=== PATIENT | male | born 1970 | race Caucasian/White ===

== ENCOUNTER 2018-05-05 07:39 | Emergency (ER) | payer MEDICAID ==
[2018-05-05 08:00] VITALS: BP 138/84
--- NOTE | 2018-05-05 10:28 | Emergency Department Report ---
ED Recheck HPI - General Chief Complaint: Medical Clearance Stated Complaint: REFILL MEDICATION Source: patient Mode of arrival: Ambulatory Limitations: Other - History of Present Illness Initial Comments: 48-year-old male presents to ED with request for medication refill. Patient has a history of bipolar and schizoaffective disorder. Patient requesting refill on Seroquel and Ritalin. Patient does not know the doses. Patient asking for something to eat. Denies SI, HI, or hallucinations. Complaint: medication refill request -: unknown Returns Today for: request for prescription (seroquel and ritalin) Associated Symptoms: none - Related Data Previous Rx's Medication Instructions Recorded Last Taken Type Benztropine [Cogentin] 0.5 mg PO BID #30 tablet 12/10/15 Unknown Rx [place] Carbonate [Eskalith] 300 mg PO BID capsule 12/10/15 Unknown Rx OLANzapine ZYDIS [ZyPREXA Zydis] 5 mg PO Q5H PRN #10 tab.rapdis 12/10/15 Unknown Rx OLANzapine [ZyPREXA] 10 mg PO BID #30 tablet 12/10/15 Unknown Rx clonazePAM [KlonoPIN] 0.5 mg PO BID #30 tablet 12/10/15 Unknown Rx levETIRAcetam [Keppra TAB] 500 mg PO BID tablet 12/10/15 Unknown Rx oxyCODONE /ACETAMINOPHEN [Percocet 1 tab PO Q6H PRN #10 tablet 12/10/15 Unknown Rx 5/325 mg] Allergies Allergy/AdvReac Type Severity Reaction Status Date / Time haloperidol [From Haldol] Allergy Unknown Verified 02/23/16 10:20 haloperidol lactate Allergy Unknown Verified 02/23/16 10:20 [From Haldol] ED Review of Systems ROS: Stated complaint: REFILL MEDICATION Other details as noted in HPI Comment: All other systems reviewed and negative Psychiatric: denies: auditory hallucinations, visual hallucinations, homicidal thoughts, suicidal thoughts ED Past Medical Hx - Past Medical History Previous Medical History?: Yes Hx Congestive Heart Failure: (unknown) Hx Diabetes: (unknown) Hx Seizures: Yes (new onset) Hx Psychiatric Treatment: Yes (SHIZOPHRENIC) Hx Asthma: (unknown) Hx COPD: (Unknown) - Surgical History Past Surgical History?: No - Social History Smoking Status: Never Smoker Substance Use Type: Prescribed - Medications Home Medications: Home Medications Medication Instructions Recorded Confirmed Last Taken Type Benztropine [Cogentin] 0.5 mg PO BID #30 tablet 12/10/15 Unknown Rx [place] Carbonate [Eskalith] 300 mg PO BID capsule 12/10/15 Unknown Rx OLANzapine ZYDIS [ZyPREXA Zydis] 5 mg PO Q5H PRN #10 tab.rapdis 12/10/15 Unknown Rx OLANzapine [ZyPREXA] 10 mg PO BID #30 tablet 12/10/15 Unknown Rx clonazePAM [KlonoPIN] 0.5 mg PO BID #30 tablet 12/10/15 Unknown Rx levETIRAcetam [Keppra TAB] 500 mg PO BID tablet 12/10/15 Unknown Rx oxyCODONE /ACETAMINOPHEN [Percocet 1 tab PO Q6H PRN #10 tablet 12/10/15 Unknown Rx 5/325 mg] ED Physical Exam - General Limitations: Other General appearance: alert, in no apparent distress - Head Head exam: Present: atraumatic, normocephalic - Eye Eye exam: Present: normal appearance - ENT ENT exam: Present: mucous membranes moist - Neck Neck exam: Present: normal inspection - Respiratory Respiratory exam: Present: normal lung sounds bilaterally. Absent: respiratory distress - Cardiovascular Cardiovascular Exam: Present: regular rate, normal rhythm - GI/Abdominal GI/Abdominal exam: Present: soft. Absent: distended - Extremities Exam Extremities exam: Present: normal inspection - Neurological Exam Neurological exam: Present: alert, oriented X3 - Psychiatric Psychiatric exam: Present: normal affect, normal mood, anxious ED Course Vital Signs 05/05/18 07:56 Temperature 97.6 F Pulse Rate 96 H Respiratory 18 Rate Blood Pressure 138/84 O2 Sat by Pulse 94 Oximetry ED Recheck MDM - Medical Decision Making Patient with history of bipolar and schizoaffective disorder presents to the ED requesting a refill on Seroquel and Ritalin. Patient does not know the dosage of these medications. The medications are not present on the chart, so unable to find if he is truly taking these medications and what dose. Informed patient that I am unable to refill these medications at this time. Patient referred to [facility] department. Critical care attestation.: If time is entered above; I have spent that time in minutes in the direct care of this critically ill patient, excluding procedure time. ED Disposition Clinical Impression: Encounter for medication refill Disposition: DC-01 TO HOME OR SELFCARE Is pt being admited?: No Condition: Stable Referrals: [facility] [Outside] - 3-5 Days Time of Disposition: 10:26
== END 2018-05-05 10:30 | disposition home or self-care (01) ==
LOC: ED 07:39
DX: Z76.0 Encounter for issue of repeat prescription (principal); F31.9 Bipolar disorder, unspecified; F25.9 Schizoaffective disorder, unspecified
CPT/HCPCS: 99281

== ENCOUNTER 2018-05-17 08:58 | Emergency (ER) | payer MEDICAID ==
[2018-05-17 09:15] VITALS: BP 119/73
[2018-05-17] MEDS ORDERED: IBUPROFEN PO ONE (09:34)
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
== END 2018-05-17 09:44 | disposition home or self-care (01) ==
LOC: ED 08:58 → MERGE 08:58 → ED 09:44
DX: S20.219A Contusion of unspecified front wall of thorax, initial encounter (principal); Y08.89XA Assault by other specified means, initial encounter; Y93.89 Activity, other specified; Y92.89 Other specified places as the place of occurrence of the external cause; Y99.8 Other external cause status
CPT/HCPCS: 99282

== ENCOUNTER 2018-05-28 16:07 | Emergency (ER) | payer MEDICAID ==
[2018-05-28 16:21] VITALS: BP 127/83
--- NOTE | 2018-05-28 18:21 | Emergency Department Report ---
ED Recheck HPI - General Chief Complaint: Medical Clearance Stated Complaint: MH EVAL Time Seen by Provider: 05/28/18 17:50 Source: patient Mode of arrival: Ambulatory Limitations: No Limitations - History of Present Illness Initial Comments: This is a 48-year-old male nontoxic, well nourished in appearance, no acute signs of distress presents to the ED for "sleep medication". Patient stated he wants medication to sleep well at nights. Patient denies any SI/HI. Patient stated he is compliant with medications. Patient denies any chest pain, short ness of breathe, fever, chills, headache, nausea vomiting chest pain or shortness of breathe. MD Complaint: other (sleep medication) Symptoms Since Prior Visit: no new symptoms Associated Symptoms: none. denies: fever, chills, chest pain, shortness of breath, rash, malaise, [place], abdominal pain - Related Data Previous Rx's Medication Instructions Recorded Last Taken Type Benztropine [Cogentin] 0.5 mg PO BID #30 tablet 12/10/15 Unknown Rx [place] Carbonate [Eskalith] 300 mg PO BID capsule 12/10/15 Unknown Rx OLANzapine ZYDIS [ZyPREXA Zydis] 5 mg PO Q5H PRN #10 tab.rapdis 12/10/15 Unknown Rx OLANzapine [ZyPREXA] 10 mg PO BID #30 tablet 12/10/15 Unknown Rx clonazePAM [KlonoPIN] 0.5 mg PO BID #30 tablet 12/10/15 Unknown Rx levETIRAcetam [Keppra TAB] 500 mg PO BID tablet 12/10/15 Unknown Rx oxyCODONE /ACETAMINOPHEN [Percocet 1 tab PO Q6H PRN #10 tablet 12/10/15 Unknown Rx 5/325 mg] Diphenhydramine HCl [Nighttime 25 mg PO QHS PRN #10 tablet 05/28/18 Unknown Rx Sleep Aid] Allergies Allergy/AdvReac Type Severity Reaction Status Date / Time haloperidol [From Haldol] Allergy Unknown Verified 02/23/16 10:20 haloperidol lactate Allergy Unknown Verified 02/23/16 10:20 [From Haldol] ED Review of Systems ROS: Stated complaint: MH EVAL Other details as noted in HPI Constitutional: denies: chills, fever Eyes: denies: eye pain, eye discharge, vision change ENT: denies: ear pain, throat pain Respiratory: denies: cough, shortness of breath, wheezing Cardiovascular: denies: chest pain, palpitations Endocrine: no symptoms reported Gastrointestinal: denies: abdominal pain, nausea, diarrhea Genitourinary: denies: urgency, dysuria Musculoskeletal: denies: back pain, joint swelling, arthralgia Skin: denies: rash, lesions Neurological: denies: headache, weakness, paresthesias Psychiatric: denies: anxiety, depression, homicidal thoughts, suicidal thoughts Hematological/Lymphatic: denies: easy bleeding, easy bruising ED Past Medical Hx - Past Medical History Hx Congestive Heart Failure: (unknown) Hx Diabetes: (unknown) Hx Seizures: Yes (new onset) Hx Psychiatric Treatment: Yes (SHIZOPHRENIC) Hx Asthma: (unknown) Hx COPD: (Unknown) - Social History Smoking Status: Never Smoker Substance Use Type: None - Medications Home Medications: Home Medications Medication Instructions Recorded Confirmed Last Taken Type Benztropine [Cogentin] 0.5 mg PO BID #30 tablet 12/10/15 Unknown Rx [place] Carbonate [Eskalith] 300 mg PO BID capsule 12/10/15 Unknown Rx OLANzapine ZYDIS [ZyPREXA Zydis] 5 mg PO Q5H PRN #10 tab.rapdis 12/10/15 Unknown Rx OLANzapine [ZyPREXA] 10 mg PO BID #30 tablet 12/10/15 Unknown Rx clonazePAM [KlonoPIN] 0.5 mg PO BID #30 tablet 12/10/15 Unknown Rx levETIRAcetam [Keppra TAB] 500 mg PO BID tablet 12/10/15 Unknown Rx oxyCODONE /ACETAMINOPHEN [Percocet 1 tab PO Q6H PRN #10 tablet 12/10/15 Unknown Rx 5/325 mg] Diphenhydramine HCl [Nighttime 25 mg PO QHS PRN #10 tablet 05/28/18 Unknown Rx Sleep Aid] ED Physical Exam - General Limitations: No Limitations General appearance: alert, in no apparent distress - Head Head exam: Present: atraumatic, normocephalic - Neck Neck exam: Present: normal inspection, full ROM - Extremities Exam Extremities exam: Present: normal inspection, full ROM - Back Exam Back exam: Present: normal inspection, full ROM - Neurological Exam Neurological exam: Present: alert, oriented X3 - Psychiatric Psychiatric exam: Present: normal affect, normal mood. Absent: depressed, agitated, homicidal ideation, suicidal ideation ED Course Vital Signs 05/28/18 16:15 Temperature 98.5 F Pulse Rate 91 H Respiratory 20 Rate Blood Pressure 127/83 O2 Sat by Pulse 100 Oximetry - Reevaluation(s) Reevaluation #1: 05/28/18 18:22 Patient is speaking in full sentences with no signs of distress noted. Critical care attestation.: If time is entered above; I have spent that time in minutes in the direct care of this critically ill patient, excluding procedure time. ED Disposition Clinical Impression: Sleep difficulties Disposition: DC-01 TO HOME OR SELFCARE Is pt being admited?: No Does the pt Need Aspirin: No Condition: Stable Additional Instructions: Follow-up with a primary care doctor in 3-5 days or if symptoms worsen and continue return to emergency room as soon as possible. Prescriptions: Diphenhydramine HCl [Nighttime Sleep Aid] 25 mg PO QHS PRN #10 tablet PRN Reason: Sleep Referrals: PRIMARY MD MARLA [Referring] - 3-5 Days THOMAS MENDIOLA MD [Staff Physician] - 3-5 Days [facility] [Outside] - 3-5 Days
== END 2018-05-28 18:31 | disposition home or self-care (01) ==
LOC: ED 16:07
DX: G47.9 Sleep disorder, unspecified (principal); Z88.5 Allergy status to narcotic agent; F20.9 Schizophrenia, unspecified
CPT/HCPCS: 99282

== ENCOUNTER 2018-06-03 05:28 | Emergency (ER) | payer MEDICAID ==
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
[2018-06-03 10:57] LABS: Basophils % (Auto) 0.5 % (0.0-1.8); Eosinophils # (Auto) 0.1 K/mm3 (0.0-0.4); Eosinophils % (Auto) 1.8 % (0.0-4.3); Hematocrit 39.7 % (35.5-45.6); Hemoglobin 13.3 gm/dl (11.8-15.2); Lymphocytes # (Auto) 1.8 K/mm3 (1.2-5.4); Lymphocytes % (Auto) 27.2 % (13.4-35.0); Mean Corpuscular HGB Conc 34 % (32-34); Mean Corpuscular Volume 91 fl (84-94); Monocytes # (Auto) 0.5 K/mm3 (0.0-0.8); Monocytes % (Auto) 7.6 % (0.0-7.3); Platelet Count 205 K/mm3 (140-440); Red Blood Count 4.38 M/mm3 (3.65-5.03); Red Cell Distribution Width 14.1 % (13.2-15.2)
[2018-06-03 11:10] LABS: BUN/Creatinine Ratio 8; Blood Urea Nitrogen 6 mg/dL (9-20); Calcium 8.9 mg/dL (8.4-10.2); Hemolysis Index 7
[2018-06-03 15:11] VITALS: BP 133/78
== END 2018-06-03 18:56 | disposition home or self-care (01) ==
LOC: ED 05:28
DX: G47.9 Sleep disorder, unspecified (principal); F31.9 Bipolar disorder, unspecified; F20.9 Schizophrenia, unspecified; Z88.8 Allergy status to other drugs, medicaments and biological substances; Z76.0 Encounter for issue of repeat prescription
CPT/HCPCS: 36415; 80048; 80178; 85025; 99283; G0480; 80320

== ENCOUNTER 2018-07-03 11:44 | Emergency (ER) | payer MEDICAID ==
--- NOTE | 2018-07-03 15:55 | Emergency Department Report ---
ED General Adult HPI - General Chief complaint: Psych Stated complaint: OFF MEDS/TOE PAIN Time Seen by Provider: 07/03/18 14:45 Source: patient, EMS Mode of arrival: Stretcher Limitations: Other - History of Present Illness Initial comments: Patient presents to the emergency department from [facility] for acute psychosis and homicidal and suicidal ideation On patient's arrival he said he had a gun and he was going to shoot people Radiation: non-radiation Severity scale (0 -10): 0 Consistency: constant Improves with: none Worsens with: none Associated Symptoms: denies other symptoms Treatments Prior to Arrival: none - Related Data Previous Rx's Medication Instructions Recorded Last Taken Type Benztropine [Cogentin] 0.5 mg PO BID #30 tablet 12/10/15 Unknown Rx [place] Carbonate [Eskalith] 300 mg PO BID capsule 12/10/15 Unknown Rx OLANzapine ZYDIS [ZyPREXA Zydis] 5 mg PO Q5H PRN #10 tab.rapdis 12/10/15 Unknown Rx OLANzapine [ZyPREXA] 10 mg PO BID #30 tablet 12/10/15 Unknown Rx clonazePAM [KlonoPIN] 0.5 mg PO BID #30 tablet 12/10/15 Unknown Rx levETIRAcetam [Keppra TAB] 500 mg PO BID tablet 12/10/15 Unknown Rx oxyCODONE /ACETAMINOPHEN [Percocet 1 tab PO Q6H PRN #10 tablet 12/10/15 Unknown Rx 5/325 mg] Diphenhydramine HCl [Nighttime 25 mg PO QHS PRN #10 tablet 05/28/18 Unknown Rx Sleep Aid] Allergies Allergy/AdvReac Type Severity Reaction Status Date / Time haloperidol [From Haldol] Allergy Unknown Verified 02/23/16 10:20 haloperidol lactate Allergy Unknown Verified 02/23/16 10:20 [From Haldol] ED Review of Systems ROS: Stated complaint: OFF MEDS/TOE PAIN Other details as noted in HPI Comment: All other systems reviewed and negative Constitutional: denies: chills, fever Eyes: denies: eye pain, eye discharge, vision change ENT: denies: ear pain, throat pain Respiratory: denies: cough, shortness of breath, wheezing Cardiovascular: denies: chest pain, palpitations Endocrine: no symptoms reported Gastrointestinal: denies: abdominal pain, nausea, diarrhea Genitourinary: denies: urgency, dysuria Musculoskeletal: denies: back pain, joint swelling, arthralgia Skin: denies: rash, lesions Neurological: denies: headache, weakness, paresthesias Psychiatric: auditory hallucinations, homicidal thoughts, suicidal thoughts. denies: anxiety, depression Hematological/Lymphatic: denies: easy bleeding, easy bruising ED Past Medical Hx - Past Medical History Hx Congestive Heart Failure: (unknown) Hx Diabetes: (unknown) Hx Seizures: Yes (new onset) Hx Psychiatric Treatment: Yes (SHIZOPHRENIC) Hx Asthma: (unknown) Hx COPD: (Unknown) - Social History Smoking Status: Never Smoker Substance Use Type: None - Medications Home Medications: Home Medications Medication Instructions Recorded Confirmed Last Taken Type Benztropine [Cogentin] 0.5 mg PO BID #30 tablet 12/10/15 Unknown Rx [place] Carbonate [Eskalith] 300 mg PO BID capsule 12/10/15 Unknown Rx OLANzapine ZYDIS [ZyPREXA Zydis] 5 mg PO Q5H PRN #10 tab.rapdis 12/10/15 Unkn own Rx OLANzapine [ZyPREXA] 10 mg PO BID #30 tablet 12/10/15 Unknown Rx clonazePAM [KlonoPIN] 0.5 mg PO BID #30 tablet 12/10/15 Unknown Rx levETIRAcetam [Keppra TAB] 500 mg PO BID tablet 12/10/15 Unknown Rx oxyCODONE /ACETAMINOPHEN [Percocet 1 tab PO Q6H PRN #10 tablet 12/10/15 Unknown Rx 5/325 mg] Diphenhydramine HCl [Nighttime 25 mg PO QHS PRN #10 tablet 05/28/18 Unknown Rx Sleep Aid] ED Physical Exam - General Limitations: Other General appearance: alert, in no apparent distress - Head Head exam: Present: atraumatic, normocephalic - Eye Eye exam: Present: normal appearance, PERRL, EOMI - ENT ENT exam: Present: mucous membranes moist - Neck Neck exam: Present: normal inspection - Respiratory Respiratory exam: Present: normal lung sounds bilaterally. Absent: respiratory distress, wheezes, rales, rhonchi - Cardiovascular Cardiovascular Exam: Present: regular rate, normal rhythm. Absent: systolic murmur, diastolic murmur, rubs, gallop - GI/Abdominal GI/Abdominal exam: Present: soft, normal bowel sounds. Absent: distended, tenderness - Rectal Rectal exam: Present: deferred - Extremities Exam Extremities exam: Present: normal inspection - Back Exam Back exam: Present: normal inspection - Neurological Exam Neurological exam: Present: alert, oriented X3, CN II-XII intact. Absent: motor sensory deficit - Psychiatric Psychiatric exam: Present: homicidal ideation, suicidal ideation, other (t angential speech with paranoia) - Skin Skin exam: Present: warm, dry, intact, normal color. Absent: rash ED Medical Decision Making - Lab Data Result diagrams: 07/03/18 19:30 07/03/18 15:55 Lab Results 07/03/18 07/03/18 07/03/18 Range/Units 15:55 15:55 15:55 WBC 8.0 (4.5-11.0) K/mm3 RBC 4.46 (3.65-5.03) M/mm3 Hgb 13.7 (11.8-15.2) gm/dl Hct 39.6 (35.5-45.6) % MCV 89 (84-94) fl MCH 31 (28-32) pg MCHC 35 H (32-34) % RDW 14.4 (13.2-15.2) % Plt Count 203 (140-440) K/mm3 Lymph % (Auto) 15.8 (13.4-35.0) % [place] % (Auto) 7.0 (0.0-7.3) % Eos % (Auto) 0.5 (0.0-4.3) % Baso % (Auto) 0.6 (0.0-1.8) % Lymph # 1.3 (1.2-5.4) K/mm3 [place] # 0.6 (0.0-0.8) K/mm3 Eos # 0.0 (0.0-0.4) K/mm3 Baso # 0.1 (0.0-0.1) K/mm3 Seg Neutrophils % 76.1 H (40.0-70.0) % Seg Neutrophils # 6.1 (1.8-7.7) K/mm3 Sodium 140 (137-145) mmol/L Potassium 3.7 (3.6-5.0) mmol/L Chloride 102.3 (98-107) mmol/L Carbon Dioxide 28 (22-30) mmol/L Anion Gap 13 mmol/L BUN 12 (9-20) mg/dL Creatinine 1.0 (0.8-1.5) mg/dL Estimated GFR > 60 ml/min BUN/Creatinine Ratio 12 % Glucose 113 H (75-100) mg/dL Calcium 8.9 (8.4-10.2) mg/dL Total Bilirubin 0.40 (0.1-1.2) mg/dL AST 31 (5-40) units/L ALT 30 (7-56) units/L Alkaline Phosphatase 68 (35-129) units/L Total Protein 6.9 (6.3-8.2) g/dL Albumin 4.1 (3.9-5) g/dL Albumin/Globulin Ratio 1.5 % Salicylates (2.8-20.0) mg/dL Acetaminophen < 5.0 L (10.0-30.0) ug/mL Plasma/Serum Alcohol (0-0.07) % 07/03/18 07/03/18 07/03/18 Range/Units 15:55 15:55 19:30 WBC 8.6 (4.5-11.0) K/mm3 RBC 4.55 (3.65-5.03) M/mm3 Hgb 13.9 (11.8-15.2) gm/dl Hct 40.7 (35.5-45.6) % MCV 89 (84-94) fl MCH 31 (28-32) pg MCHC 34 (32-34) % RDW 14.2 (13.2-15.2) % Plt Count 219 (140-440) K/mm3 Lymph % (Auto) 23.7 (13.4-35.0) % [place] % (Auto) 9.7 H (0.0-7.3) % Eos % (Auto) 1.4 (0.0-4.3) % Baso % (Auto) 1.0 (0.0-1.8) % Lymph # 2.0 (1.2-5.4) K/mm3 [place] # 0.8 (0.0-0.8) K/mm3 Eos # 0.1 (0.0-0.4) K/mm3 Baso # 0.1 (0.0-0.1) K/mm3 Seg Neutrophils % 64.2 (40.0-70.0) % Seg Neutrophils # 5.5 (1.8-7.7) K/mm3 Sodium (137-145) mmol/L Potassium (3.6-5.0) mmol/L Chloride (98-107) mmol/L Carbon Dioxide (22-30) mmol/L Anion Gap mmol/L BUN (9-20) mg/dL Creatinine (0.8-1.5) mg/dL Estimated GFR ml/min BUN/Creatinine Ratio % Glucose (75-100) mg/dL Calcium (8.4-10.2) mg/dL Total Bilirubin (0.1-1.2) mg/dL AST (5-40) units/L ALT (7-56) units/L Alkaline Phosphatase (35-129) units/L Total Protein (6.3-8.2) g/dL Albumin (3.9-5) g/dL Albumin/Globulin Ratio % Salicylates < 0.3 L (2.8-20.0) mg/dL Acetaminophen (10.0-30.0) ug/mL Plasma/Serum Alcohol < 0.01 (0-0.07) % - Medical Decision Making 1013 and apply Mental health evaluation done Psychiatric input pending for placement Critical care attestation.: If time is entered above; I have spent that time in minutes in the direct care o f this critically ill patient, excluding procedure time. ED Disposition Clinical Impression: Paranoia Disposition: DC/TX-65 PSY HOSP/PSY UNIT Is pt being admited?: No Does the pt Need Aspirin: No Condition: Stable Referrals: MICHELLE RAE MD [Primary Care Provider] - 3-5 Days
[2018-07-03 16:13] LABS: Basophils # (Auto) 0.1 K/mm3 (0.0-0.1); Basophils % (Auto) 0.6 % (0.0-1.8); Eosinophils % (Auto) 0.5 % (0.0-4.3); Hematocrit 39.6 % (35.5-45.6); Hemoglobin 13.7 gm/dl (11.8-15.2); Lymphocytes # (Auto) 1.3 K/mm3 (1.2-5.4); Lymphocytes % (Auto) 15.8 % (13.4-35.0); Mean Corpuscular HGB Conc 35 % (32-34); Mean Corpuscular Volume 89 fl (84-94); Monocytes # (Auto) 0.6 K/mm3 (0.0-0.8); Platelet Count 203 K/mm3 (140-440); Red Blood Count 4.46 M/mm3 (3.65-5.03); Red Cell Distribution Width 14.4 % (13.2-15.2)
[2018-07-03 16:33] LABS: Alanine Aminotransferase 30 units/L (7-56); Albumin 4.1 g/dL (3.9-5); BUN/Creatinine Ratio 12; Blood Urea Nitrogen 12 mg/dL (9-20); Calcium 8.9 mg/dL (8.4-10.2); Hemolysis Index 22
[2018-07-03 19:44] LABS: Basophils # (Auto) 0.1 K/mm3 (0.0-0.1); Eosinophils # (Auto) 0.1 K/mm3 (0.0-0.4); Eosinophils % (Auto) 1.4 % (0.0-4.3); Hematocrit 40.7 % (35.5-45.6); Hemoglobin 13.9 gm/dl (11.8-15.2); Lymphocytes % (Auto) 23.7 % (13.4-35.0); Mean Corpuscular HGB Conc 34 % (32-34); Mean Corpuscular Volume 89 fl (84-94); Monocytes # (Auto) 0.8 K/mm3 (0.0-0.8); Monocytes % (Auto) 9.7 % (0.0-7.3); Platelet Count 219 K/mm3 (140-440); Red Blood Count 4.55 M/mm3 (3.65-5.03); Red Cell Distribution Width 14.2 % (13.2-15.2)
[2018-07-03 19:56] LABS: BUN/Creatinine Ratio 16; Blood Urea Nitrogen 14 mg/dL (9-20); Hemolysis Index 11
[2018-07-03 23:02] LABS: Bilirubin,Urine NEG (Negative); Blood,Urine NEG (Negative); Color,Urine Yellow (Yellow); Mucus,Urine FEW /HPF; Protein,Urine <15 mg/dL mg/dL (Negative); WBC,Urine < 1.0 /HPF (0.0-6.0)
[2018-07-03 23:03] LABS: Amphetamine Screen,Urine PRESUMPTIVE NEGATIVE; Benzodiazepines Screen,Urine PRESUMPTIVE NEGATIVE; Cannabinoid Screen,Urine PRESUMPTIVE NEGATIVE; Cocaine Screen,Urine PRESUMPTIVE NEGATIVE; Methadone Screen,Urine PRESUMPTIVE NEGATIVE; Opiate Screen,Urine PRESUMPTIVE NEGATIVE
[2018-07-04] MEDS ORDERED: ATIVAN PO ONE (04:25)
[2018-07-04] MEDS ORDERED: ATIVAN ONE (04:31)
[2018-07-04 13:44] VITALS: BP 114/64
== END 2018-07-04 17:39 ==
LOC: ED 11:44 → EEVIPCON 11:44 → ED 07-04 17:39
DX: F22 Delusional disorders (principal); F20.9 Schizophrenia, unspecified; R45.851 Suicidal ideations; R45.850 Homicidal ideations; Z88.8 Allergy status to other drugs, medicaments and biological substances
CPT/HCPCS: 36415; 80048; 80053; 80307; 81001; 85025; 99285; G0480; 80320

== ENCOUNTER 2018-08-02 19:31 | Emergency (ER) | payer MEDICAID ==
--- NOTE | 2018-08-02 19:56 | Emergency Department Report ---
Blank Doc - Documentation Documentation: This is a 48-year-old male that presents with psychosis. Patient is hitting s elf and yelling. This initial assessment/diagnostic orders/clinical plan/treatment(s) is/are subject to change based on patient's health status, clinical progression and re- assessment by fellow clinical providers in the ED. Further treatment and workup at subsequent clinical providers discretion. Patient/guardians urged not to elope from the ED as their condition may be serious if not clinically assessed and managed. Initial orders include: 1- Patient sent to MAIN ED for further evaluation and treatment 2- senior microsoft net developer was notified to have patient be brought back [facility]. 3- RN was notified to keep patient as close range and observation until room available 4- Patient presents with substantial risk of imminent harm to self, appears to be so unable to care for his/her own physical health and safety as to create an imminently life-endangering crisis, and has committed/expressed life endangering crisis to self. Due to this and other complaints, patient is put on 1013.
--- NOTE | 2018-08-02 20:19 | Emergency Department Report ---
ED Psych HPI - General Chief Complaint: Psych Stated Complaint: MH EVAL Time Seen by Provider: 08/02/18 19:56 Source: EMS Mode of arrival: Stretcher - History of Present Illness Initial Comments: Patient is a 48-year-old male presents emergency room with acute psychosis. Patient is hitting himself and having acute agitation and refusing to answer questions. Patient yelling and combative during exam. Patient placed in seclusion room. Patient placed on a 1013. Patient states he is on medications for depression and dates she is off his medications. Patient hitting himself in the head.. Patient denies any physical complaints. Patient denies pain. Patient denies chest pain. Patient denies all physical complaints. Patient review of systems negative. MD Complaint: feels depressed, other -: Sudden History of same: Yes Quality: constant Improves With: none Worsens With: none Context: not taking psychiatric Treatments Prior to Arrival: placed on mental he - Related Data Previous Rx's Medication Instructions Recorded Last Taken Type Benztropine [Cogentin] 0.5 mg PO BID #30 tablet 12/10/15 Unknown Rx [place] Carbonate [Eskalith] 300 mg PO BID capsule 12/10/15 Unknown Rx OLANzapine ZYDIS [ZyPREXA Zydis] 5 mg PO Q5H PRN #10 tab.rapdis 12/10/15 Unknown Rx OLANzapine [ZyPREXA] 10 mg PO BID #30 tablet 12/10/15 Unknown Rx clonazePAM [KlonoPIN] 0.5 mg PO BID #30 tablet 12/10/15 Unknown Rx levETIRAcetam [Keppra TAB] 500 mg PO BID tablet 12/10/15 Unknown Rx oxyCODONE /ACETAMINOPHEN [Percocet 1 tab PO Q6H PRN #10 tablet 12/10/15 Unknown Rx 5/325 mg] Diphenhydramine HCl [Nighttime 25 mg PO QHS PRN #10 tablet 05/28/18 Unknown Rx Sleep Aid] Allergies Allergy/AdvReac Type Severity Reaction Status Date / Time haloperidol [From Haldol] Allergy Unknown Verified 02/23/16 10:20 haloperidol lactate Allergy Unknown Verified 02/23/16 10:20 [From Haldol] ED Review of Systems ROS: Stated complaint: MH EVAL Other details as noted in HPI Constitutional: denies: chills, fever Eyes: denies: eye pain, eye discharge, vision change ENT: denies: ear pain, throat pain Respiratory: denies: cough, shortness of breath, wheezing Cardiovascular: denies: chest pain, palpitations Endocrine: no symptoms reported Gastrointestinal: denies: abdominal pain, nausea, diarrhea Genitourinary: denies: urgency, dysuria Musculoskeletal: denies: back pain, joint swelling, arthralgia Skin: denies: rash, lesions Neurological: denies: headache, weakness, paresthesias Psychiatric: depression. denies: anxiety Hematological/Lymphatic: denies: easy bleeding, easy bruising ED Past Medical Hx - Past Medical History Previous Medical History?: Yes Hx Congestive Heart Failure: (unknown) Hx Diabetes: (unknown) Hx Seizures: Yes (new onset) Hx Psychiatric Treatment: Yes (SHIZOPHRENIC) Hx Asthma: (unknown) Hx COPD: (Unknown) - Surgical History Past Surgical History?: No - Family History Family history: no significant - Social History Smoking Status: Current Every Day Smoker Substance Use Type: None - Medications Home Medications: Home Medications Medication Instructions Recorded Confirmed Last Taken Type Benztropine [Cogentin] 0.5 mg PO BID #30 tablet 12/10/15 Unknown Rx [place] Carbonate [Eskalith] 300 mg PO BID capsule 12/10/15 Unknown Rx OLANzapine ZYDIS [ZyPREXA Zydis] 5 mg PO Q5H PRN #10 tab.rapdis 12/10/15 Unknown Rx OLANzapine [ZyPREXA] 10 mg PO BID #30 tablet 12/10/15 Unknown Rx clonazePAM [KlonoPIN] 0.5 mg PO BID #30 tablet 12/10/15 Unknown Rx levETIRAcetam [Keppra TAB] 500 mg PO BID tablet 12/10/15 Unknown Rx oxyCODONE /ACETAMINOPHEN [Percocet 1 tab PO Q6H PRN #10 tablet 12/10/15 Unknown Rx 5/325 mg] Diphenhydramine HCl [Nighttime 25 mg PO QHS PRN #10 tablet 05/28/18 Unknown Rx Sleep Aid] ED Physical Exam - General Limitations: Other General appearance: alert, in no apparent distress - Head Head exam: Present: atraumatic, normocephalic - Eye Eye exam: Present: normal appearance, PERRL Pupils: Present: normal accommodation - ENT ENT exam: Present: mucous membranes moist - Neck Neck exam: Present: normal inspection - Respiratory Respiratory exam: Present: normal lung sounds bilaterally. Absent: respiratory distress - Cardiovascular Cardiovascular Exam: Present: regular rate, normal rhythm. Absent: systolic murmur, diastolic murmur, rubs, gallop - GI/Abdominal GI/Abdominal exam: Present: soft, normal bowel sounds - Rectal Rectal exam: Present: deferred - Extremities Exam Extremities exam: Present: normal inspection - Back Exam Back exam: Present: normal inspection - Neurological Exam Neurological exam: Present: alert, oriented X3 - Expanded Psychiatric Exam Expanded Focused psych exam: Present: pressured speech, psychomotor agitation, restlessness, flight of ideas, loose associations - Skin Skin exam: Present: warm, dry, intact, normal color. Absent: rash ED Course Vital Signs 08/02/18 19:54 Temperature 97.8 F Pulse Rate 94 H Respiratory 18 Rate Blood Pressure 125/83 O2 Sat by Pulse 98 Oximetry - Reevaluation(s) Reevaluation #1: Patient will remain on a 1013 for acute psychosis and combative behavior and agitation. 08/02/18 20:19 Discussed all results with patient. Patient remain in the ER as an ER hold on a 1013. 08/02/18 22:27 ED Medical Decision Making - Lab Data Result diagrams: 08/02/18 19:58 08/02/18 19:58 - Medical Decision Making Patient is a 48-year-old male presents emergency with complaints of acute psychosis and combative behavior and agitation and hitting himself in the head. Patient had labs done and they were unremarkable. Patient is medically clear. Patient will remain in the ER as an ER hold until exception to appropriate psy chiatric facility. Patient was placed on a 1013 immediately upon arrival. - Differential Diagnosis acute psychosis Critical care attestation.: If time is entered above; I have spent that time in minutes in the direct care of this critically ill patient, excluding procedure time. ED Disposition Clinical Impression: Self-inflicted injury, Agitation, Combative behavior, Acute psychosis Disposition: DC/TX-65 PSY HOSP/PSY UNIT Is pt being admited?: No Does the pt Need Aspirin: No Condition: Stable Additional Instructions: Patient is medically cleared Referrals: MICHELLE RAE MD [Primary Care Provider] - 3-5 Days Time of Disposition: 22:26
[2018-08-02 20:20] LABS: Basophils % (Auto) 0.2 % (0.0-1.8); Eosinophils # (Auto) 0.1 K/mm3 (0.0-0.4); Eosinophils % (Auto) 1.3 % (0.0-4.3); Hematocrit 36.1 % (35.5-45.6); Hemoglobin 12.2 gm/dl (11.8-15.2); Lymphocytes % (Auto) 17.6 % (13.4-35.0); Mean Corpuscular HGB Conc 34 % (32-34); Mean Corpuscular Volume 90 fl (84-94); Monocytes # (Auto) 0.9 K/mm3 (0.0-0.8); Monocytes % (Auto) 8.1 % (0.0-7.3); Platelet Count 184 K/mm3 (140-440); Red Blood Count 4.03 M/mm3 (3.65-5.03); Red Cell Distribution Width 14.8 % (13.2-15.2)
[2018-08-02 20:31] LABS: BUN/Creatinine Ratio 15; Blood Urea Nitrogen 12 mg/dL (9-20); Calcium 8.8 mg/dL (8.4-10.2); Hemolysis Index 20
[2018-08-03 03:55] LABS: Bilirubin,Urine NEG (Negative); Blood,Urine NEG (Negative); Color,Urine Yellow (Yellow); Mucus,Urine FEW /HPF; Protein,Urine <15 mg/dL mg/dL (Negative); WBC,Urine < 1.0 /HPF (0.0-6.0)
[2018-08-03 04:04] LABS: Amphetamine Screen,Urine PRESUMPTIVE NEGATIVE; Benzodiazepines Screen,Urine PRESUMPTIVE NEGATIVE; Cannabinoid Screen,Urine PRESUMPTIVE NEGATIVE; Cocaine Screen,Urine PRESUMPTIVE NEGATIVE; Methadone Screen,Urine PRESUMPTIVE NEGATIVE; Opiate Screen,Urine PRESUMPTIVE NEGATIVE
--- NOTE | 2018-08-03 16:31 | Consultation ---
History of Present Illness - Reason for Consult Consult date: 08/03/18 Reason for consult: psych consult - Chief Complaint Chief complaint: cc"I take medications" 48 year old BM presents to [facility] where we've been asked to evaluate his mental health. Patient continues to present in a similar fashion as he did upon admit to the ER. He is yelling and highly disorganized. He isn't able to give me an indication as to why he is here or even appreciate the extent of his psychosis. He is on the floor yelling to himself and responding. No gestures of SI/HI at this time. Medications and Allergies Allergies Allergy/AdvReac Type Severity Reaction Status Date / Time haloperidol [From Haldol] Allergy Unknown Verified 02/23/16 10:20 haloperidol lactate Allergy Unknown Verified 02/23/16 10:20 [From Haldol] Home Medications Medication Instructions Recorded Confirmed Last Taken Type Benztropine [Cogentin] 0.5 mg PO BID #30 tablet 12/10/15 Unknown Rx [place] Carbonate [Eskalith] 300 mg PO BID capsule 12/10/15 Unknown Rx OLANzapine ZYDIS [ZyPREXA Zydis] 5 mg PO Q5H PRN #10 tab.rapdis 12/10/15 Unknown Rx OLANzapine [ZyPREXA] 10 mg PO BID #30 tablet 12/10/15 Unknown Rx clonazePAM [KlonoPIN] 0.5 mg PO BID #30 tablet 12/10/15 Unknown Rx levETIRAcetam [Keppra TAB] 500 mg PO BID tablet 12/10/15 Unknown Rx oxyCODONE /ACETAMINOPHEN [Percocet 1 tab PO Q6H PRN #10 tablet 12/10/15 Unknown Rx 5/325 mg] Diphenhydramine HCl [Nighttime 25 mg PO QHS PRN #10 tablet 05/28/18 Unknown Rx Sleep Aid] Past psychiatric history - Past Medical History Past Medical History: other ("I don't know") - past Psychiatric treatment and history psychiatric treatment history: Inpt: "I don't know" Outpt: "don't know" Psych meds: no answer +SA: "now" Family psych history" yes I don't know" Substance" No I not a doctor" - Social History Social history: other (no answer) Mental Status Exam - Vital signs Last Vital Signs Temp 98.2 F 04/05/19 09:40 Pulse 72 08/03/18 09:40 Resp 18 08/03/18 09:40 BP 108/64 08/03/18 09:40 Pulse Ox 100 08/03/18 09:40 - Exam Orientation: person Affect: agitated Mood: other (non answer) Thought content: delusions, paranoia Thought Process: Disorganized Perceptions: hallucinations Speech: pressured Concentration: distractible, unable to pay attention Motor activity: restless, agitated Level of consciousness: alert Interaction: other (pt too disorganized to access memory) Results Result Diagrams: 08/02/18 19:58 08/02/18 19:58 Abnormal lab results 08/02/18 08/02/18 08/02/18 Range/Units 19:58 19:58 19:58 WBC 11.2 H (4.5-11.0) K/mm3 [place] % (Auto) 8.1 H (0.0-7.3) % [place] # 0.9 H (0.0-0.8) K/mm3 Seg Neutrophils % 72.8 H (40.0-70.0) % Seg Neutrophils # 8.1 H (1.8-7.7) K/mm3 Sodium 136 L (137-145) mmol/L Glucose 119 H (75-100) mg/dL Salicylates < 0.3 L (2.8-20.0) mg/dL Acetaminophen (10.0-30.0) ug/mL 08/02/18 Range/Units 19:58 WBC (4.5-11.0) K/mm3 [place] % (Auto) (0.0-7.3) % [place] # (0.0-0.8) K/mm3 Seg Neutrophils % (40.0-70.0) % Seg Neutrophils # (1.8-7.7) K/mm3 Sodium (137-145) mmol/L Glucose (75-100) mg/dL Salicylates (2.8-20.0) mg/dL Acetaminophen < 5.0 L (10.0-30.0) ug/mL All other labs normal. Assessment and Plan Assessment and plan: 48 year old BM presents to [facility] where we've been asked to evaluate his mental health. Patient continues to present in a similar fashion as he did upon admit to the ER. He is yelling and highly disorganized. Presents with psychosis. A/P psychosis: use haldol 5mg po bid for psychosis- discussed side effect and benefits including metabolic syndrome cogentin 1mg po qhs eps -transfer to inpatient
[2018-08-03] MEDS ORDERED: COGENTIN PO SCH (22:00)
[2018-08-03] MEDS ORDERED: RisperDAL PO SCH (22:00)
[2018-08-04] MEDS ORDERED: GEODON IM ONE (01:12)
[2018-08-04] MEDS ORDERED: ATIVAN ONE (01:12)
[2018-08-04] MEDS ORDERED: GEODON IM PRN ×2 (01:15→10:37)
[2018-08-04] MEDS: ATIVAN IM PRN ×2 (01:30→10:55)
[2018-08-04] MEDS ORDERED: WATER FOR INJ (PF) ONE (11:09)
[2018-08-04 14:12] VITALS: BP 123/80
[2018-08-04] MEDS ORDERED: KEPPRA PO SCH (22:00)
[2018-08-04] MEDS ORDERED: ESKALITH PO SCH (22:00)
[2018-08-04] MEDS ORDERED: COGENTIN PO SCH (22:00)
== END 2018-08-04 17:18 ==
LOC: EEVIPCON 19:31 → ED 19:31
DX: S09.90XA Unspecified injury of head, initial encounter (principal); F23 Brief psychotic disorder; R46.89 Other symptoms and signs involving appearance and behavior; F17.200 Nicotine dependence, unspecified, uncomplicated; W22.01XA Walked into wall, initial encounter; Y93.89 Activity, other specified; Y92.89 Other specified places as the place of occurrence of the external cause; Y99.8 Other external cause status
CPT/HCPCS: 36415; 80048; 80178; 80307; 81001; 85025; 96372; 99285; G0480; J2060; J3486; 80320

== ENCOUNTER 2018-08-04 14:57 | Inpatient (IN) | payer MEDICAID ==
[2018-08-04] MEDS ORDERED: PERCOCET 5/325 PO PRN (16:32)
[2018-08-04] MEDS: KEPPRA PO SCH (21:40)
[2018-08-04] MEDS: COGENTIN PO SCH (21:41)
[2018-08-04] MEDS: ESKALITH PO SCH (21:42)
[2018-08-05] MEDS: ATIVAN IM PRN ×2 (01:56→18:37)
[2018-08-05] MEDS: GEODON IM PRN (08:06)
[2018-08-05] MEDS: COGENTIN PO SCH (09:35)
[2018-08-05] MEDS: KEPPRA PO SCH (09:35)
[2018-08-05] MEDS: ESKALITH PO SCH (09:36)
--- NOTE | 2018-08-05 09:38 | History and Physical Report ---
GP History & Physical - History of Present Illness Date of admission: 08/04/18 Date of Examination: 08/05/18 Reason for Admission: Danger to self, Danger to others, Impaired reality testing, Psychopathology interference, Unable to care for self Chief Complaint: Aggressive behaviors History of Present Illness: The patient is a 48yo male with history of Schizophrenia. He was brought to the ED with c/o disorganized behavior, severe agitation and aggression towards himself - hitting self. He is reportedly off his medications. Patient calms down with PRN Geodon but becomes agitated after a few hours. He is agitated and his speech is unintelligible and difficult to understand when I evaluated him. He appeared to be responding to internal stimuli. Legal Status: Voluntary Patient Problems: Current Active Problems DVT prophylaxis (Acute) Paranoid schizophrenia (Acute) Seizure disorder (Chronic) Reaction to Hospitalization: Accepting Substance History - Substance History Drug Use: other (Unknown) Past psychiatric history - Past Medical History Past Medical History: seizures - past Psychiatric treatment and history Psych: Schizophrenia - Social History Social history: single, full code Review of Systems ROS unobtainable: due to mental status Results - Results Labs/Vitals: Laboratory Last Values POC Glucose 129 (70-105) H 08/04/18 21:16 Vitamin B12 246.5 pg/mL (211-911) 08/04/18 19:26 [place] 0.1 mmol/L (0.0-1.2) 08/04/18 19:26 Last Vital Signs Temp 97.5 F L 08/05/18 04:00 Pulse 41 L 08/05/18 04:00 Resp 16 08/05/18 04:00 BP 108/77 08/05/18 08:09 Pulse Ox 100 08/05/18 04:00 Physical Examination - Constitutional Vitals: Vital Signs Temp Pulse Resp BP Pulse Ox 97.5 F L 41 L 16 108/77 100 08/05/18 04:00 08/05/18 04:00 08/05/18 04:00 08/05/18 08:09 08/05/18 04:00 Temperature -Last 24 Hours Temperature 97.5 F General appearance: Present: well-nourished, disheveled - EENT ENT: hearing intact - Neck Neck: Present: supple - Extremities Extremities: no ischemia - Psychiatric Psychiatric: agitated Mental Status Exam - Vital signs Last Vital Signs Temp 97.5 F L 08/05/18 04:00 Pulse 41 L 08/05/18 04:00 Resp 16 08/05/18 04:00 BP 108/77 08/05/18 08:09 Pulse Ox 100 08/05/18 04:00 - Exam Orientation: place, person Affect: agitated Mood: congruent with affect Thought content: delusions, paranoia Thought Process: Disorganized Perceptions: hallucinations Speech: other (loud but unintelligible) Concentration: unable to pay attention Motor activity: restless, agitated Level of consciousness: alert Interaction: hostile, irritable Assessment and Plan - Psychiatric problem (1) Paranoid schizophrenia Current Visit: Yes Status: Acute (2) Seizure disorder Current Visit: Yes Status: Chronic (3) Acute psychosis Current Visit: No Status: Acute (4) Agitation Current Visit: No Status: Acute (5) Combative behavior Current Visit: No Status: Acute Physician Certification - Certification Statement Physician Certification Statement: This is an acknowledgement statement that ALBERT GONZALEZ is a 48 year old M who requires inpatient psychiatric admission for treatment which could reasonably be expected to improve the patient's condition for Acute Psychosis Estimated period of time patient will need to remain in the hospital: 10 days Plan for post-hospital care: Out-patient care PLAN: Patient will be admitted for inpatient psychiatric evaluation, medication adjustment and close monitoring The patient's behavior, mood, sleep and appetite will be closely monitored. Patient will be enrolled in individual and group therapeutic sessions and encouraged to attend. Patient will be provided with a safe and structured environment. Patient's physical health needs will be addressed by the Hospitalist. Social Assessment will be completed and the [facility] will work with patient and family to ensure a suitable and safe disposition Medication adjustment will be made as clinically indicated The patient agreed on the treatment plan, understood the risk, benefit, alternative treatment, potential consequence of no treatment, and gave informed consent.
--- NOTE | 2018-08-05 23:07 | Consultation ---
History of Present Illness - Reason for Consult Consult date: 08/05/18 Medical management Requesting physician: MELISSA SEVILLA - History of Present Illness Voluntary admission for ---Danger to self, Danger to others, Impaired reality testing, Psychopathology interference, Unable to care for self History of seizure disorder. Past History Past Medical History: seizures Past Surgical History: No surgical history Social history: full code Family history: hypertension Medications and Allergies Allergies Allergy/AdvReac Type Severity Reaction Status Date / Time haloperidol [From Haldol] Allergy Unknown Verified 02/23/16 10:20 haloperidol lactate Allergy Unknown Verified 02/23/16 10:20 [From Haldol] Home Medications Medication Instructions Recorded Confirmed Last Taken Type Benztropine [Cogentin] 0.5 mg PO BID #30 tablet 12/10/15 08/03/18 Unknown Rx [place] Carbonate [Eskalith] 300 mg PO BID capsule 12/10/15 08/03/18 Unknown Rx OLANzapine ZYDIS [ZyPREXA Zydis] 5 mg PO Q5H PRN #10 tab.rapdis 12/10/15 08/03/18 Unknown Rx OLANzapine [ZyPREXA] 10 mg PO BID #30 tablet 12/10/15 08/03/18 Unknown Rx clonazePAM [KlonoPIN] 0.5 mg PO BID #30 tablet 12/10/15 08/03/18 Unknown Rx levETIRAcetam [Keppra TAB] 500 mg PO BID tablet 12/10/15 08/03/18 Unknown Rx oxyCODONE /ACETAMINOPHEN [Percocet 1 tab PO Q6H PRN #10 tablet 12/10/15 08/03/18 Unknown Rx 5/325 mg] Diphenhydramine HCl [Nighttime 25 mg PO QHS PRN #10 tablet 05/28/18 08/03/18 U nknown Rx Sleep Aid] Active Meds: Active Medications Benztropine Mesylate (Cogentin) 0.5 mg PO BID [facility] Last Admin: 08/05/18 09:35 Dose: 0.5 mg Documented by: Clonazepam (Klonopin) 0.5 mg PO BID [facility] Last Admin: 08/05/18 09:35 Dose: 0.5 mg Documented by: Levetiracetam (Keppra) 500 mg PO BID [facility] Last Admin: 08/05/18 09:35 Dose: 500 mg Documented by: [place] Carbonate (Eskalith) 300 mg PO BID [facility] Last Admin: 08/05/18 09:36 Dose: 300 mg Documented by: Lorazepam (Ativan) 2 mg IM Q8H PRN PRN Reason: Agitation Last Admin: 08/05/18 18:37 Dose: 2 mg Documented by: Olanzapine (Zyprexa) 10 mg PO BID [facility] Last Admin: 08/05/18 09:35 Dose: 10 mg Documented by: Olanzapine (Zyprexa Zydis) 5 mg PO Q6H PRN PRN Reason: Agitation Oxycodone/Acetaminophen (Percocet 5/325) 1 tab PO Q6H PRN PRN Reason: Pain, Moderate (4-6) Ziprasidone (Geodon) 10 mg IM Q8H PRN PRN Reason: Agitation Last Admin: 08/05/18 08:06 Dose: 10 mg Documented by: Review of Systems All systems: negative Exam - Constitutional Vitals: Temp Pulse Resp BP Pulse Ox 97.8 F 55 L 16 108/77 100 08/05/18 08:09 08/05/18 08:09 08/05/18 04:00 08/05/18 08:09 08/05/18 04:00 General appearance: Present: no acute distress, well-nourished - EENT Eyes: Present: PERRL ENT: hearing intact, clear oral mucosa - Neck Neck: Present: supple, normal ROM - Respiratory Respiratory effort: normal Respiratory: bilateral: CTA - Cardiovascular Heart Sounds: Present: S1 & S2. Absent: rub, click - Extremities Extremities: pulses symmetrical, No edema Peripheral Pulses: within normal limits - Abdominal General gastrointestinal: Present: soft, non-tender, non-distended, normal bowel sounds Male genitourinary: Present: normal - Integumentary Integumentary: Present: clear, warm, dry - Musculoskeletal Musculoskeletal: gait normal, strength equal bilaterally - Psychiatric Psychiatric: appropriate mood/affect, intact judgment & insight - Neurologic Neurologic: CNII-XII intact, moves all extremities Results - Labs Labs: Abnormal lab results 08/04/18 Range/Units 21:16 POC Glucose 129 H (70-105) Assessment and Plan - Patient Problems (1) Seizure disorder Current Visit: Yes Status: Chronic Plan to address problem: COnt Keppra 500 mg po BID (2) Psychosis Current Visit: No Status: Acute Qualifiers: Psychosis type: schizoaffective disorder Schizoaffective disorder type: bipolar Qualified Code(s): F25.0 - Schizoaffective disorder, bipolar type Plan to address problem: Per Dr Sevilla (3) DVT prophylaxis Current Visit: Yes Status: Acute Plan to address problem: OnLovenox and GI prophylaxis
[2018-08-06] MEDS: COGENTIN PO SCH ×3 (00:03→21:12)
[2018-08-06] MEDS: ESKALITH PO SCH ×3 (00:03→21:12)
[2018-08-06] MEDS: KEPPRA PO SCH ×3 (00:03→21:12)
--- NOTE | 2018-08-06 20:47 | Progress Note ---
Subjective Date of service: 08/06/18 Principal diagnosis: Paranoid Schizophrenia Subjective Comment: The patient continues to be agitated, aggressive, disruptive and very difficult to redirect. He is closely being monitored by nursing staffs. He accepts his medications with no reported or observed medication side effects. Objective - Criteria for Continued Treatment Criteria for Continued Treatment: Improving Level of Functioning, Understanding Diagnosis and need for Medication, Improving Treatment / Medication Compliance, Confronting Denial of Illness, Stablizing Level of Functioning, Improving Emotional/Socia - Mental Status Mental Status: Oriented x [address] - Objective Observation Participation Level: Minimal Reason(s) For Not Participating: Behaviors Assessment and Plan - Patient Problems (1) Paranoid schizophrenia Current Visit: Yes Status: Acute (2) Seizure disorder Current Visit: Yes Status: Chronic (3) Acute psychosis Current Visit: No Status: Acute (4) Agitation Current Visit: No Status: Acute (5) Combative behavior Current Visit: No Status: Acute Plan to address problem: Patient will be admitted for medication adjustment and close monitoring The patient's behavior, mood, sleep and appetite will be closely monitored. Patient will be enrolled in individual and group therapeutic sessions and encouraged to attend. Patient will be provided with a safe and structured environment. Patient's physical health needs will be addressed by the Hospitalist. Social Assessment will be completed and the Electrical Assemblies Supervisor will work with patient and family to ensure a suitable and safe disposition Medication adjustment will be made as clinically indicated The patient agreed on the treatment plan, understood the risk, benefit, alternative treatment, potential consequence of no treatment, and gave informed consent.
[2018-08-07] MEDS: ATIVAN IM PRN (03:32)
--- NOTE | 2018-08-07 07:11 | Progress Note ---
Subjective Date of service: 08/07/18 Principal diagnosis: Paranoid Schizophrenia Subjective Comment: The patient is improving, he is less aggressive but continues to be agitated, disruptive and difficult to redirect. His speech is slightly clearer this morning. He endorses auditory hallucination s, he paces and he did not sleep well last night. He received PRN Lorazepam last night. Patient denies suicidal or homicidal thoughts. He accepts his medications with no reported or observed medication side effects. Objective - Criteria for Continued Treatment Criteria for Continued Treatment: Improving Level of Functioning, Understanding Diagnosis and need for Medication, Improving Treatment / Medication Compliance, Stablizing Level of Functioning, Improving Emotional/Socia - Mental Status Mental Status: Oriented x [address] - Objective Observation Participation Level: Moderate Assessment and Plan - Patient Problems (1) Paranoid schizophrenia Current Visit: Yes Status: Acute (2) Seizure disorder Current Visit: Yes Status: Chronic (3) Acute psychosis Current Visit: No Status: Acute (4) Agitation Current Visit: No Status: Acute (5) Combative behavior Current Visit: No Status: Acute Plan to address problem: Patient will be admitted for medication adjustment and close monitoring The patient's behavior, mood, sleep and appetite will be closely monitored. Patient will be enrolled in individual and group therapeutic sessions and encouraged to attend. Patient will be provided with a safe and structured environment. Patient's physical health needs will be addressed by the Hospitalist. Social Assessment will be completed and the Stock Clerk Self Service Store will work with patient and family to ensure a suitable and safe disposition Medication adjustment will be made as clinically indicated Will increase Clonazepam to 0.5mg tid Check [place] level in am tomorrow and adjust dose. The patient agreed on the treatment plan, understood the risk, benefit, alternative treatment, potential consequence of no treatment, and gave informed consent.
[2018-08-07] MEDS: COGENTIN PO SCH ×2 (09:00→21:36)
[2018-08-07] MEDS: ESKALITH PO SCH ×2 (09:00→21:36)
[2018-08-07] MEDS: KEPPRA PO SCH ×2 (09:00→21:36)
--- NOTE | 2018-08-08 08:23 | Progress Note ---
Subjective Date of service: 08/08/18 Principal diagnosis: Paranoid Schizophrenia Subjective Comment: The patient to be agitated, disruptive and difficult to redirect. He has paranoid delusions and continues to experience auditory hallucinations. He continues to pace, his gait is more steady today. He did not sleep well last night. Patient denies suicidal or homicidal thoughts. He accepts his medications with no reported or observed medication side effects. Objective - Criteria for Continued Treatment Criteria for Continued Treatment: Improving Level of Functioning, Understanding Diagnosis and need for Medication, Improving Treatment / Medication Compliance, Stablizing Level of Functioning, Improving Emotional/Socia - Mental Status Mental Status: Oriented x [address] - Objective Observation Participation Level: Moderate Assessment and Plan - Patient Problems (1) Paranoid schizophrenia Current Visit: Yes Status: Acute (2) Seizure disorder Current Visit: Yes Status: Chronic (3) Acute psychosis Current Visit: No Status: Acute (4) Agitation Current Visit: No Status: Acute (5) Combative behavior Current Visit: No Status: Acute Plan to address problem: Patient will be admitted for medication adjustment and close monitoring The patient's behavior, mood, sleep and appetite will be closely monitored. Patient will be enrolled in individual and group therapeutic sessions and encouraged to attend. Patient will be provided with a safe and structured environment. Patient's physical health needs will be addressed by the Hospitalist. Social Assessment will be completed and the Home Health Provider will work with patient and family to ensure a suitable and safe disposition Medication adjustment will be made as clinically indicated I will add Trazodone 50mg qhs to help with sleep. Awaiting result of serum lithium to adjust [place] dose. The patient agreed on the treatment plan, understood the risk, benefit, alternative treatment, potential consequence of no treatment, and gave informed consent.
[2018-08-08] MEDS ORDERED: WATER FOR INJ Sterile (PF) 10 ML ONE (09:04)
[2018-08-08] MEDS: ESKALITH PO SCH ×2 (09:31→21:53)
[2018-08-08] MEDS: KEPPRA PO SCH ×2 (09:32→21:52)
[2018-08-08] MEDS: COGENTIN PO SCH ×2 (09:32→21:51)
[2018-08-08] MEDS: GEODON IM PRN (09:32)
[2018-08-08] MEDS ORDERED: DESYREL PO SCH (22:00)
[2018-08-09] MEDS: ATIVAN IM PRN ×2 (00:23→19:37)
[2018-08-09] MEDS: KEPPRA PO SCH ×2 (10:01→22:20)
[2018-08-09] MEDS: ESKALITH PO SCH ×2 (10:09→22:26)
[2018-08-09] MEDS: COGENTIN PO SCH ×2 (10:09→22:21)
--- NOTE | 2018-08-09 14:20 | Progress Note ---
Subjective Date of service: 08/09/18 Principal diagnosis: Paranoid Schizophrenia Subjective Comment: The patient is disruptive on the [place], pacing, entering other patients' rooms and their belongings. He is difficult to redirect. He did not sleep well last night. Patient denies suicidal or homicidal thoughts. He accepts his medications with no reported or observed medication side effects. Objective - Criteria for Continued Treatment Criteria for Continued Treatment: Improving Level of Functioning, Understanding Diagnosis and need for Medication, Improving Treatment / Medication Compliance, Stablizing Level of Functioning, Improving Emotional/Socia - Mental Status Mental Status: Oriented x [address] - Objective Observation Participation Level: Minimal Reason(s) For Not Participating: Behaviors Assessment and Plan - Patient Problems (1) Paranoid schizophrenia Current Visit: Yes Status: Acute (2) Seizure disorder Current Visit: Yes Status: Chronic (3) Acute psychosis Current Visit: No Status: Acute (4) Agitation Current Visit: No Status: Acute (5) Combative behavior Current Visit: No Status: Acute Plan to address problem: Patient will be admitted for medication adjustment and close monitoring The patient's behavior, mood, sleep and appetite will be closely monitored. Patient will be enrolled in individual and group therapeutic sessions and encouraged to attend. Patient will be provided with a safe and structured environment. Patient's physical health needs will be addressed by the Hospitalist. Social Assessment will be completed and the Blast Furnace Keeper Helper will work with patient and family to ensure a suitable and safe disposition Medication adjustment will be made as clinically indicated I will add Trazodone 50mg qhs PRN and Melatonin 10mg qhs to help with sleep. [place] level was 0.4, will increase dose to 300mg tid The patient agreed on the treatment plan, understood the risk, benefit, alternative treatment, potential consequence of no treatment, and gave informed consent.
[2018-08-09] MEDS: MELATONIN PO SCH (22:25)
[2018-08-10] MEDS: GEODON IM PRN (01:05)
[2018-08-10] MEDS: KEPPRA PO SCH ×2 (09:04→21:30)
[2018-08-10] MEDS: COGENTIN PO SCH ×2 (09:04→21:29)
[2018-08-10] MEDS: ESKALITH PO SCH ×3 (09:04→21:30)
--- NOTE | 2018-08-10 16:20 | Progress Note ---
Subjective Date of service: 08/10/18 Principal diagnosis: Paranoid Schizophrenia Subjective Comment: Mr. Johnson is a 48 yo male with Schizophrenia who continues to be very agitated on the unit. He did not sleep well last night (45 minutes) and required prns of lorazepam and ziprasidone. He refused to speak with this MD today, stating "you pervert, you pervert. I'll pay you, if I want to talk to you, I'll pay you." Laboratory Results - last 72 hr 08/07/18 08/07/18 08/08/18 11:56 16:39 08:23 POC Glucose 81 110 H [place] 0.4 08/10/18 07:39 POC Glucose 84 [place] Last Vital Signs Temp 98.3 F 08/10/18 08:28 Pulse 63 08/10/18 08:28 Resp 18 08/10/18 08:28 BP 101/49 08/10/18 08:28 Pulse Ox 100 08/10/18 08:28 Objective - Criteria for Continued Treatment Criteria for Continued Treatment: Improving Level of Functioning, Understanding Diagnosis and need for Medication, Improving Treatment / Medication Compliance, Stablizing Level of Functioning, Improving Emotional/Socia - Mental Status Mental Status: Alert - Objective Observation Participation Level: Minimal Reason(s) For Not Participating: Behaviors Assessment and Plan - Patient Problems (1) Combative behavior Current Visit: No Status: Acute Plan to address problem: Continue hospitalization; give prns when agitated if unable to respond appropriately to other methods of altering behavior (redirection, distraction) (2) Paranoid schizophrenia Current Visit: Yes Status: Acute Plan to address problem: Increase Zyprexa to 10mg po Qam and 20mg po Qhs
[2018-08-10] MEDS: MELATONIN PO SCH (21:30)
[2018-08-10] MEDS: ATIVAN IM PRN (22:21)
[2018-08-11] MEDS: ESKALITH PO SCH ×3 (10:16→20:13)
[2018-08-11] MEDS: KEPPRA PO SCH ×2 (10:16→22:45)
[2018-08-11] MEDS: COGENTIN PO SCH ×2 (10:16→22:45)
--- NOTE | 2018-08-11 15:47 | Progress Note ---
Subjective Date of service: 08/11/18 Principal diagnosis: Paranoid Schizophrenia Subjective Comment: Mr. Johnson is a 48-year-old male with schizophrenia admitted for acute agitation and psychosis. According to unit staff he continues to be delusional and agitated. He needs frequent redirection. He often goes into other patient's rooms and has scared of other patients on the unit. Last night he was hitting himself in the head and needed Ativan IM for agitation. He slept 2 hours last night. He is taking oral meds. During the evaluation tooday he continued to express paranoid and grandiose delusions and was intrusive when this MD was speaking to other patients. He becomes easily agitated and has difficulty calming down. He also notes that he needs more food and has crack PCP and marijuana in his food. He reports rectal pain and states that he never has a bowel movement because "that's disgusting." Denies other physical health complaints. During the evaluation today he had visual hallucinations of a woman and started speaking to her. He denies suicidal and homicidal ideation. Last Vital Signs Temp 98.3 F 08/10/18 08:28 Pulse 63 08/10/18 08:28 Resp 18 08/10/18 08:28 BP 101/49 08/10/18 08:28 Pulse Ox 100 08/10/18 08:28 Objective - Criteria for Continued Treatment Criteria for Continued Treatment: Improving Level of Functioning, Understanding Diagnosis and need for Medication, Improving Treatment / Medication Compliance, Confronting Denial of Illness, Decreasing Frequency of Hospitalization - Mental Status Mental Status: Alert - Objective Observation Participation Level: Minimal Reason(s) For Not Participating: Behaviors Assessment and Plan - Patient Problems (1) Combative behavior Current Visit: No Status: Acute Plan to address problem: Give Geodon IM first instead of Ativan if patient becomes agitated. May give Ativan if Geodon is ineffective. (2) Paranoid schizophrenia Current Visit: Yes Status: Acute Plan to address problem: Continue current dose of Zyprexa. May increase dose tomorrow if there is no improvement with increased dose prescribed yesterday.
[2018-08-11] MEDS: MELATONIN PO SCH (22:45)
[2018-08-11] MEDS: DESYREL PO PRN (22:47)
[2018-08-12] MEDS: GEODON IM PRN ×3 (03:33→21:58)
[2018-08-12] MEDS: ESKALITH PO SCH ×4 (08:21→21:22)
[2018-08-12] MEDS: KEPPRA PO SCH ×2 (09:03→21:23)
[2018-08-12] MEDS: THERAGRAN Tab PO SCH (09:03)
[2018-08-12] MEDS: COGENTIN PO SCH ×2 (09:03→21:23)
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
[2018-08-12] MEDS: MELATONIN PO SCH (21:23)
[2018-08-12] MEDS: DESYREL PO PRN (21:23)
[2018-08-13] MEDS: COGENTIN PO SCH ×2 (11:51→21:19)
[2018-08-13] MEDS: THERAGRAN Tab PO SCH (11:51)
[2018-08-13] MEDS: ESKALITH PO SCH ×3 (11:52→21:19)
[2018-08-13] MEDS: KEPPRA PO SCH ×2 (11:52→21:20)
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
[2018-08-13] MEDS: GEODON IM PRN (15:30)
[2018-08-13] MEDS: DESYREL PO PRN (20:45)
[2018-08-13] MEDS: ATIVAN IM PRN (21:19)
[2018-08-13] MEDS: THORAZINE PO SCH (21:20)
[2018-08-13] MEDS: MELATONIN PO SCH (21:21)
[2018-08-14] MEDS: ESKALITH PO SCH ×3 (07:45→21:31)
[2018-08-14] MEDS ORDERED: WATER FOR INJ Sterile (PF) 10 ML ONE (07:52)
[2018-08-14] MEDS: THORAZINE PO SCH ×3 (08:18→21:34)
[2018-08-14] MEDS: THORAZINE IM PRN ×2 (08:22→20:14)
[2018-08-14] MEDS: THERAGRAN Tab PO SCH (10:42)
[2018-08-14] MEDS: KEPPRA PO SCH ×2 (10:42→21:31)
[2018-08-14] MEDS: COGENTIN PO SCH ×2 (10:42→21:31)
[2018-08-14] MEDS: GEODON IM PRN (14:45)
--- NOTE | 2018-08-14 18:40 | Progress Note ---
Subjective Date of service: 08/14/18 Principal diagnosis: Paranoid Schizophrenia Subjective Comment: Mr. Johnson is a 48-year-old male with schizophrenia admitted for acute agitation and psychosis. Mr. Johnson's worsened agitation has continued worse over the past 24 hours. He requires constant intervention and redirection from staff. Per [facility] staff, he refused oral medications this AM, but took mid-day meds. He required thorazine PRN today, as well as Ativan once. The only sleep he has had in the past 24 hours was after the morning prn med. He refused to cooperate with MD today - unable to assess SI/HI and AVH, though he mutters grandiose and paranoid delusional content while pacing the [place]. Temp 98.3 F 08/10/18 08:28 Pulse 63 08/10/18 08:28 Resp 18 08/10/18 08:28 BP 101/49 08/10/18 08:28 Pulse Ox 100 08/10/18 08:28 Temp 97.6 F 08/12/18 06:57 Pulse 81 08/12/18 06:57 Resp 18 08/12/18 06:57 BP 125/76 08/12/18 06:57 Pulse Ox 98 08/12/18 06:57 Last Vital Signs Temp 97.6 F 08/12/18 06:57 Pulse 81 08/12/18 06:57 Resp 18 08/12/18 06:57 BP 125/76 08/12/18 06:57 Pulse Ox 98 08/12/18 06:57 Last Vital Signs Temp 97.6 F 08/12/18 06:57 Pulse 81 08/12/18 06:57 Resp 18 08/12/18 06:57 BP 125/76 08/12/18 06:57 Pulse Ox 98 08/12/18 06:57 Objective - Criteria for Continued Treatment Criteria for Continued Treatment: Improving Level of Functioning, Understanding Diagnosis and need for Medication, Improving Treatment / Medication Compliance, Confronting Denial of Illness, Stablizing Level of Functioning, Improving Emotional/Socia, Decreasing Frequency of Hospitalization - Mental Status Mental Status: Alert - Objective Observation Participation Level: None Reason(s) For Not Participating: Behaviors Assessment and Plan - Patient Problems (1) Combative behavior Current Visit: No Status: Acute Plan to address problem: Continue thorazine IM prn. Will d/c oral clonazepam as it may be disinhibiting him. (2) Paranoid schizophrenia Current Visit: Yes Status: Acute Plan to address problem: Continue Zyprexa 20mg po BID starting tomorrow. Will order Zyprexa zydis 40mg tonight, as he did not take his AM meds. Continue thorazine 25mg po TID. Pending transfer to [facility] started due to severity of symptoms, lack of improvement, and disruption to other patients on the unit.
[2018-08-14] MEDS: ATIVAN IM PRN (19:30)
[2018-08-14] MEDS: DESYREL PO PRN (21:30)
[2018-08-14] MEDS: MELATONIN PO SCH (21:30)
[2018-08-15] MEDS: ATIVAN IM PRN ×2 (01:41→19:08)
[2018-08-15] MEDS: ESKALITH PO SCH ×3 (09:15→21:07)
[2018-08-15] MEDS: KEPPRA PO SCH ×2 (09:16→21:07)
[2018-08-15] MEDS: THERAGRAN Tab PO SCH (09:16)
[2018-08-15] MEDS: COGENTIN PO SCH ×2 (09:16→21:07)
[2018-08-15] MEDS: THORAZINE PO SCH ×3 (13:10→21:07)
[2018-08-15] MEDS: THORAZINE IM PRN ×2 (13:20→17:40)
[2018-08-15] MEDS: BENADRYL IM PRN ×2 (13:53→19:09)
[2018-08-15] MEDS: MELATONIN PO SCH (21:07)
--- NOTE | 2018-08-15 21:44 | Progress Note ---
Subjective Date of service: 08/15/18 Principal diagnosis: Paranoid Schizophrenia Subjective Comment: Mr. Johnson continues to be acutely agitated delusional and aggressive on the unit and has required 4 different when necessary medications over the course of the day today.. He continues to enter into other patient's rooms. Mr. Johnson was willing to speak to this M.D. today and expressed that he is having auditory hallucinations. He denies suicidal and homicidal ideation. 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 His speech is slurred, disorganized, and difficult to understand. He reports pain in his bottom and states he last had a bowel movement 5 years ago. Objective - Mental Status Mental Status: Alert - Objective Observation Participation Level: None Reason(s) For Not Participating: Behaviors Assessment and Plan - Patient Problems (1) Combative behavior Current Visit: No Status: Acute Plan to address problem: Continue providing calm environment in unlocked isolation room. Give PRN meds as necessary if patient does not respond to redirection. (2) Paranoid schizophrenia Current Visit: Yes Status: Acute Plan to address problem: Continue Zyprexa zydis 20mg BID. Increase thorazine to 50mg po TID. Transfer to [facility].
[2018-08-16] MEDS: BENADRYL IM PRN ×2 (04:51→10:39)
[2018-08-16] MEDS: THORAZINE IM PRN ×3 (04:51→21:41)
[2018-08-16] MEDS: THORAZINE PO SCH ×3 (10:24→21:26)
[2018-08-16] MEDS: ESKALITH PO SCH ×3 (10:24→20:14)
[2018-08-16] MEDS: THERAGRAN Tab PO SCH (10:24)
[2018-08-16] MEDS: KEPPRA PO SCH ×2 (10:24→21:26)
[2018-08-16] MEDS: COGENTIN PO SCH ×2 (10:26→21:26)
[2018-08-16] MEDS: ATIVAN IM PRN (10:39)
--- NOTE | 2018-08-16 18:35 | Progress Note ---
Subjective Date of service: 08/16/18 Principal diagnosis: Paranoid Schizophrenia Subjective Comment: The patient continues to be extremely agitated and aggressive. He has required 4 different when necessary medications in the past 24 hours due to his agitation. He initially was willing to speak to this M.D. today but quickly spelled his dinner became agitated and slammed the door to the room where he was eating. Since that time he has been unwilling to speak today and has been aggressive by banging his hands on briscoe and doors. Objective - Criteria for Continued Treatment Criteria for Continued Treatment: Understanding Diagnosis and need for Medication, Improving Treatment / Medication Compliance, Confronting Denial of Illness, Stablizing Level of Functioning, Decreasing Frequency of Hospitalization - Mental Status Mental Status: Alert - Objective Observation Participation Level: Minimal Assessment and Plan - Patient Problems (1) Combative behavior Current Visit: No Status: Acute Plan to address problem: Continue providing calm environment in unlocked isolation room. Give PRN meds when necessary if patient does not respond to redirection. (2) Paranoid schizophrenia Current Visit: Yes Status: Acute Plan to address problem: Continue Zyprexa zydis 20mg BID. Increased thorazine to 50mg po TID. Transfer to [facility].
[2018-08-17] MEDS: BENADRYL IM PRN ×3 (04:18→19:29)
[2018-08-17] MEDS: ATIVAN IM PRN ×3 (04:18→19:29)
--- NOTE | 2018-08-17 09:04 | Progress Note ---
Subjective Date of service: 08/17/18 Principal diagnosis: Paranoid Schizophrenia Subjective Comment: The patient is disruptive on the carrillo, pacing, entering other patients' rooms. He is difficult to redirect. He did not sleep well last night. Patient denies suicidal or homicidal thoughts. He accepts his medications with no reported or observed medication side effects. Objective - Criteria for Continued Treatment Criteria for Continued Treatment: Improving Level of Functioning, Understanding Diagnosis and need for Medication, Improving Treatment / Medication Compliance, Stablizing Level of Functioning, Improving Emotional/Socia - Mental Status Mental Status: Oriented x 3 - Objective Observation Participation Level: Minimal Reason(s) For Not Participating: Behaviors Assessment and Plan - Patient Problems (1) Paranoid schizophrenia Current Visit: Yes Status: Acute (2) Seizure disorder Current Visit: Yes Status: Chronic (3) Acute psychosis Current Visit: No Status: Acute (4) Agitation Current Visit: No Status: Acute (5) Combative behavior Current Visit: No Status: Acute Plan to address problem: Patient will be admitted for medication adjustment and close monitoring The patient's behavior, mood, sleep and appetite will be closely monitored. Patient will be enrolled in individual and group therapeutic sessions and encouraged to attend. Patient will be provided with a safe and structured environment. Patient's physical health needs will be addressed by the Hospitalist. Social Assessment will be completed and the Proof Machine Operator Supervisor will work with patient and family to ensure a suitable and safe disposition Medication adjustment will be made as clinically indicated Check [place] level. Start Clonazepam 0.25mg bid + 0.25mg tid prn for warren The patient agreed on the treatment plan, understood the risk, benefit, alternative treatment, potential consequence of no treatment, and gave informed consent.
[2018-08-17] MEDS: ESKALITH PO SCH ×3 (10:06→20:38)
[2018-08-17] MEDS: THORAZINE PO SCH ×2 (10:06→16:12)
[2018-08-17] MEDS: KEPPRA PO SCH ×2 (10:07→21:03)
[2018-08-17] MEDS: THERAGRAN Tab PO SCH (10:07)
[2018-08-17] MEDS: COGENTIN PO SCH (10:07)
[2018-08-17 14:58] LABS: Hematocrit 35.9 % (35.5-45.6); Hemoglobin 12.1 gm/dl (11.8-15.2); Mean Corpuscular HGB Conc 34 % (32-34); Mean Corpuscular Volume 91 fl (84-94); Platelet Count 249 K/mm3 (140-440); Red Blood Count 3.97 M/mm3 (3.65-5.03); Red Cell Distribution Width 15.3 % (13.2-15.2)
[2018-08-17 15:05] LABS: BUN/Creatinine Ratio 24; Blood Urea Nitrogen 19 mg/dL (9-20); Calcium 9.4 mg/dL (8.4-10.2); Hemolysis Index 16
--- NOTE | 2018-08-17 15:56 | Consultation ---
History of Present Illness - Reason for Consult Consult date: 08/17/18 rectal pain - History of Present Illness This is a 48 y/o AAM History of seizure disorder came to Voluntary admission for ---Danger to self, Danger to others, Impaired reality testing, Psychopathology interference, Unable to care for self. He is being managed at the geriatric psych unit. Medicine service consulted for rectal pain. patient current is very violent, did not allow to to full assessment and was screaming out out nonstop. Assessment tried with RN but was unsuccessful. Past History Past Medical History: seizures Past Surgical History: No surgical history Social history: single, full code Family history: hypertension Medications and Allergies Allergies Allergy/AdvReac Type Severity Reaction Status Date / Time haloperidol [From Haldol] Allergy Unknown Verified 02/23/16 10:20 haloperidol lactate Allergy Unknown Verified 02/23/16 10:20 [From Haldol] Home Medications Medication Instructions Recorded Confirmed Last Taken Type Benztropine [Cogentin] 0.5 mg PO BID #30 tablet 12/10/15 08/06/18 Unknown Rx [place] Carbonate [Eskalith] 300 mg PO BID capsule 12/10/15 08/06/18 Unknown Rx OLANzapine ZYDIS [ZyPREXA Zydis] 5 mg PO Q5H PRN #10 tab.rapdis 12/10/15 08/06/18 Unknown Rx OLANzapine [ZyPREXA] 10 mg PO BID #30 tablet 12/10/15 08/06/18 Unknown Rx clonazePAM [KlonoPIN] 0.5 mg PO BID #30 tablet 12/10/15 08/06/18 Unknown Rx levETIRAcetam [Keppra TAB] 500 mg PO BID tablet 12/10/15 08/06/18 Unknown Rx oxyCODONE /ACETAMINOPHEN [Percocet 1 tab PO Q6H PRN #10 tablet 12/10/15 08/06/18 Unknown Rx 5/325 mg] Diphenhydramine HCl [Nighttime 25 mg PO QHS PRN #10 tablet 05/28/18 08/06/18 Unknown Rx Sleep Aid] Active Meds: Active Medications Benztropine Mesylate (Cogentin) 0.5 mg PO BID CINDA Last Admin: 08/17/18 10:07 Dose: 0.5 mg Documented by: Chlorpromazine HCl (Thorazine) 25 mg IM Q4H PRN PRN Reason: Agitation Last Admin: 08/16/18 21:41 Dose: 25 mg Documented by: Chlorpromazine HCl (Thorazine) 50 mg PO TID [facility] Last Admin: 08/17/18 10:06 Dose: 50 mg Documented by: Diphenhydramine HCl (Benadryl) 50 mg IM Q6H PRN PRN Reason: AGITATION Last Admin: 08/17/18 11:46 Dose: 50 mg Documented by: Levetiracetam (Keppra) 500 mg PO BID [facility] Last Admin: 08/17/18 10:07 Dose: 500 mg Documented by: [place] Carbonate (Eskalith) 300 mg PO TID [facility] Last Admin: 08/17/18 10:06 Dose: 300 mg Documented by: Lorazepam (Ativan) 2 mg IM Q8H PRN PRN Reason: Agitation (after Ge[place] IM) Last Admin: 08/17/18 11:45 Dose: 2 mg Documented by: Melatonin (Melatonin) 10 mg PO QHS [facility] Last Admin: 08/15/18 21:07 Dose: 10 mg Documented by: Multivitamins (Theragran Tab) 1 each PO QDAY [facility] Last Admin: 08/17/18 10:07 Dose: 1 each Documented by: Olanzapine (Zyprexa Zydis) 5 mg PO Q6H PRN PRN Reason: Agitation Last Admin: 08/15/18 09:16 Dose: 5 mg Documented by: Olanzapine (Zyprexa Zydis) 20 mg PO BID [facility] Last Admin: 08/17/18 10:10 Dose: 20 mg Documented by: Oxycodone/Acetaminophen (Percocet 5/325) 1 tab PO Q6H PRN PRN Reason: Pain, Moderate (4-6) Trazodone HCl (Desyrel) 50 mg PO QHS PRN PRN Reason: Insomnia Last Admin: 08/14/18 21:30 Dose: 50 mg Documented by: Review of Systems ROS unobtainable: due to mental status Exam - Physical Exam Narrative exam: Unable to do through physical exam as he did not allow. Very aggressive and irritated with disorganized thought. - Constitutional Vitals: Temp Pulse Resp BP Pulse Ox 97.9 F 98 H 20 117/75 100 08/13/18 17:46 08/16/18 06:10 08/16/18 06:10 08/16/18 06:10 08/16/18 06:10 Results - Labs CBC & Chem 7: 08/17/18 14:29 08/17/18 14:29 Labs: Abnormal lab results 08/17/18 08/17/18 Range/Units 14:29 14:29 WBC 12.5 H (4.5-11.0) K/mm3 RDW 15.3 H (13.2-15.2) % Sodium 135 L (137-145) mmol/L Assessment and Plan Rectal pain??: likely improved, does not complaint anymore per RN - could be from hemorrhoid, no h/o bloody stool per RN - will get CBC, BMP - place on steroid cream as needed, if does not improve need to consult GI - Please call us back if symptom persist and when patient is more cooperative
[2018-08-17] MEDS ORDERED: PROCTOSOL-HC PR PRN (15:57)
[2018-08-17] MEDS: MELATONIN PO SCH (21:03)
[2018-08-17] MEDS: DESYREL PO PRN (21:04)
[2018-08-18] MEDS: ATIVAN IM PRN ×3 (03:20→19:54)
[2018-08-18] MEDS: BENADRYL IM PRN ×3 (03:20→19:55)
[2018-08-18] MEDS: KEPPRA PO SCH ×2 (09:14→21:10)
[2018-08-18] MEDS: ESKALITH PO SCH ×3 (09:14→21:10)
[2018-08-18] MEDS: THERAGRAN Tab PO SCH (09:15)
--- NOTE | 2018-08-18 16:19 | Progress Note ---
Subjective Date of service: 08/18/18 Principal diagnosis: Paranoid Schizophrenia Subjective Comment: The patient is disruptive on the carrillo, pacing, entering other patients' rooms. He is difficult to redirect. Patient denies suicidal or homicidal thoughts. He accepts his medications with no reported or observed medication side effects. Objective - Criteria for Continued Treatment Criteria for Continued Treatment: Improving Level of Functioning, Understanding Diagnosis and need for Medication, Improving Treatment / Medication Compliance, Confronting Denial of Illness, Stablizing Level of Functioning, Improving Emotional/Socia - Mental Status Mental Status: Oriented x 3 - Objective Observation Participation Level: Minimal Reason(s) For Not Participating: Behaviors Assessment and Plan - Patient Problems (1) Paranoid schizophrenia Current Visit: Yes Status: Acute (2) Seizure disorder Current Visit: Yes Status: Chronic (3) Acute psychosis Current Visit: No Status: Acute (4) Agitation Current Visit: No Status: Acute (5) Combative behavior Current Visit: No Status: Acute Plan to address problem: Patient will be admitted for medication adjustment and close monitoring The patient's behavior, mood, sleep and appetite will be closely monitored. Patient will be enrolled in individual and group therapeutic sessions and encouraged to attend. Patient will be provided with a safe and structured environment. Patient's physical health needs will be addressed by the Hospitalist. Social Assessment will be completed and the Hand Sewer will work with patient and family to ensure a suitable and safe disposition Medication adjustment will be made as clinically indicated Continue current meds The patient agreed on the treatment plan, understood the risk, benefit, alternative treatment, potential consequence of no treatment, and gave informed consent.
[2018-08-18] MEDS: MELATONIN PO SCH ×2 (19:36→21:10)
[2018-08-19] MEDS: DESYREL PO PRN (00:29)
[2018-08-19] MEDS ORDERED: WATER FOR INJ Sterile (PF) 10 ML ONE (01:59)
[2018-08-19] MEDS ORDERED: GEODON IM ONE (02:04)
[2018-08-19] MEDS: BENADRYL IM PRN ×4 (02:18→19:31)
[2018-08-19] MEDS: ATIVAN IM PRN ×3 (06:10→19:32)
[2018-08-19] MEDS: KEPPRA PO SCH ×2 (09:00→21:07)
[2018-08-19] MEDS: THERAGRAN Tab PO SCH (09:00)
[2018-08-19] MEDS: ESKALITH PO SCH ×2 (09:01→21:08)
--- NOTE | 2018-08-19 10:46 | Progress Note ---
Subjective Date of service: 08/19/18 Principal diagnosis: Paranoid Schizophrenia Subjective Comment: The patient is disruptive on the carrillo, pacing, entering other patients' rooms. He is difficult to redirect. Patient denies suicidal or homicidal thoughts. He accepts his medications with no reported or observed medication side effects. [place] increased to 600mg bid and Clonazepam increased to 1mg tid Objective - Criteria for Continued Treatment Criteria for Continued Treatment: Improving Level of Functioning, Improving Treatment / Medication Compliance, Stablizing Level of Functioning, Improving Emotional/Socia - Mental Status Mental Status: Oriented x [address] - Objective Observation Participation Level: Minimal Reason(s) For Not Participating: Behaviors Assessment and Plan - Patient Problems (1) Paranoid schizophrenia Current Visit: Yes Status: Acute (2) Seizure disorder Current Visit: Yes Status: Chronic (3) Acute psychosis Current Visit: No Status: Inactive (4) Agitation Current Visit: No Status: Inactive (5) Combative behavior Current Visit: No Status: Inactive Plan to address problem: Patient will be admitted for medication adjustment and close monitoring The patient's behavior, mood, sleep and appetite will be closely monitored. Patient will be enrolled in individual and group therapeutic sessions and encouraged to attend. Patient will be provided with a safe and structured environment. Patient's physical health needs will be addressed by the Hospitalist. Social Assessment will be completed and the Airframe And Power Plant Mechanic will work with patient and family to ensure a suitable and safe disposition Medication adjustment will be made as clinically indicated The patient agreed on the treatment plan, understood the risk, benefit, alternative treatment, potential consequence of no treatment, and gave informed consent.
[2018-08-19] MEDS ORDERED: ATIVAN IM PRN (10:50)
[2018-08-19] MEDS: MELATONIN PO SCH (21:08)
[2018-08-20] MEDS: BENADRYL IM PRN ×4 (01:10→21:52)
[2018-08-20] MEDS: ATIVAN IM PRN ×4 (01:10→21:52)
[2018-08-20] MEDS: KEPPRA PO SCH ×2 (09:24→21:08)
[2018-08-20] MEDS: THERAGRAN Tab PO SCH (09:24)
[2018-08-20] MEDS: ESKALITH PO SCH ×2 (09:24→21:08)
[2018-08-20] MEDS: MELATONIN PO SCH (21:08)
[2018-08-20] MEDS: DESYREL PO PRN (21:09)
--- NOTE | 2018-08-21 00:30 | Progress Note ---
Subjective Date of service: 08/20/18 Principal diagnosis: Paranoid Schizophrenia Subjective Comment: The patient is disruptive on the carrillo, pacing, entering other patients' rooms. He is difficult to redirect. Patient denies suicidal or homicidal thoughts. He accepts his medications with no reported or observed medication side effects. Objective - Criteria for Continued Treatment Criteria for Continued Treatment: Improving Level of Functioning, Understanding Diagnosis and need for Medication, Improving Treatment / Medication Compliance, Stablizing Level of Functioning, Improving Emotional/Socia - Mental Status Mental Status: Oriented x [address] - Objective Observation Participation Level: Minimal Reason(s) For Not Participating: Behaviors Assessment and Plan - Patient Problems (1) Paranoid schizophrenia Current Visit: Yes Status: Acute (2) Seizure disorder Current Visit: Yes Status: Chronic (3) Acute psychosis Current Visit: No Status: Inactive (4) Agitation Current Visit: No Status: Inactive (5) Combative behavior Current Visit: No Status: Inactive Plan to address problem: Patient will be admitted for medication adjustment and close monitoring The patient's behavior, mood, sleep and appetite will be closely monitored. Patient will be enrolled in individual and group therapeutic sessions and encouraged to attend. Patient will be provided with a safe and structured environment. Patient's physical health needs will be addressed by the Hospitalist. Social Assessment will be completed and the Knotter will work with patient and family to ensure a suitable and safe disposition Medication adjustment will be made as clinically indicated The patient agreed on the treatment plan, understood the risk, benefit, alternative treatment, potential consequence of no treatment, and gave informed consent.
[2018-08-21] MEDS: KEPPRA PO SCH ×2 (09:02→22:00)
[2018-08-21] MEDS: THERAGRAN Tab PO SCH (09:03)
[2018-08-21] MEDS: ESKALITH PO SCH ×2 (09:03→22:31)
--- NOTE | 2018-08-21 09:08 | Progress Note ---
Subjective Date of service: 08/21/18 Principal diagnosis: Paranoid Schizophrenia Subjective Comment: The patient appears to be at his baseline. He is loud, pacing but re-directable. Patient denies suicidal or homicidal thoughts. No hallucinations/delusions. He accepts his medications with no reported or observed medication side effects. Will add Depakote 500mg bid for its calming effect and mood stabilization. Objective - Criteria for Continued Treatment Criteria for Continued Treatment: Improving Level of Functioning, Improving Treatment / Medication Compliance, Stablizing Level of Functioning, Improving Emotional/Socia - Mental Status Mental Status: Oriented x [address] - Objective Observation Participation Level: Moderate Assessment and Plan - Patient Problems (1) Paranoid schizophrenia Current Visit: Yes Status: Acute (2) Seizure disorder Current Visit: Yes Status: Chronic (3) Acute psychosis Current Visit: No Status: Inactive (4) Agitation Current Visit: No Status: Inactive (5) Combative behavior Current Visit: No Status: Inactive Plan to address problem: Patient will be admitted for medication adjustment and close monitoring The patient's behavior, mood, sleep and appetite will be closely monitored. Patient will be enrolled in individual and group therapeutic sessions and encouraged to attend. Patient will be provided with a safe and structured environment. Patient's physical health needs will be addressed by the Hospitalist. Social Assessment will be completed and the Director Of Teenage Activities will work with patient and family to ensure a suitable and safe disposition Medication adjustment will be made as clinically indicated The patient agreed on the treatment plan, understood the risk, benefit, alternative treatment, potential consequence of no treatment, and gave informed consent.
[2018-08-21 09:14] VITALS: BP 102/68
[2018-08-21] MEDS: BENADRYL IM PRN ×2 (12:54→19:30)
[2018-08-21] MEDS: ATIVAN IM PRN ×2 (12:54→19:30)
[2018-08-21] MEDS: MELATONIN PO SCH (22:29)
[2018-08-22] MEDS: ATIVAN IM PRN (08:19)
[2018-08-22] MEDS: BENADRYL IM PRN (08:19)
[2018-08-22] MEDS: ESKALITH PO SCH (10:06)
[2018-08-22] MEDS: KEPPRA PO SCH (10:06)
[2018-08-22] MEDS: THERAGRAN Tab PO SCH (10:06)
--- NOTE | 2018-08-22 10:42 | Discharge Summary ---
Providers - Providers Date of Admission: 08/04/18 18:30 Date of discharge: 08/22/18 Attending physician: MELISSA SEVILLA MD 08/04/18 16:30 Consult to Physician [CONS] Routine Comment: Consulting Provider: MELISSA SEVILLA Physician Instructions: Reason For Exam: Medical eval and management of patient 08/17/18 07:40 Consult to Physician [CONS] Routine Comment: Consulting Provider: ALEKSANDR MCDUFFIE Physician Instructions: Reason For Exam: rectal pain [facility] Reason for admission: disorganized behavior, severe agitation and aggression towards himself. Condition: Fair Hospital course: The patient was provided inpatient psychiatric treatment with safe and supportive environment, group therapy, individual counseling, psychiatric medication, medication adjustment, adverse effect monitor, medical evaluation, medical treatment, social service assessment, family/social support meeting, placement assessment and psycho-education. The patients mood, anxiety, thoughts, stress management skill, cognition, impulse/anger control, motivation, understanding of disease, compliance to treatment and appreciation on family/social support are improved and stabilized. At the time of discharge, the patient had no suicidal ideas, no homicidal ideas, no aggressive thoughts, no endangering behavior and no debilitating adverse effects. The patient agreed on the treatment plan, understood the risk, benefit, alternative treatment, potential consequence of no treatment, and gave informed consent. The patient was advised to be compliant with medications, not to use drugs and not to drink alcohol. The patient understands that if suicidal ideas, homicidal ideas, or any endangering thoughts arise, the patient should immediately seek for emergent assistance including but not limited to crisis hot line and emergency room. Follow up with out-patient Psychiatrist and PCP within 14 - 21 days of discharge. Disposition: -01 TO HOME OR SELFCARE Allergies/Adverse Reactions: Allergies haloperidol [From Haldol] Allergy (Verified 02/23/16 10:20) Unknown haloperidol lactate [From Haldol] Allergy (Verified 02/23/16 10:20) Unknown Vital Signs: Last Vital Signs Temp 97.9 F 08/13/18 17:46 Pulse 83 08/21/18 09:10 Resp 18 08/21/18 06:46 BP 102/68 08/21/18 09:10 Pulse Ox 100 08/21/18 09:10 Last Lab: Laboratory Last Values WBC 12.5 K/mm3 (4.5-11.0) H 08/17/18 14:29 RBC 3.97 M/mm3 (3.65-5.03) 08/17/18 14:29 Hgb 12.1 gm/dl (11.8-15.2) 08/17/18 14:29 Hct 35.9 % (35.5-45.6) 08/17/18 14:29 MCV 91 fl (84-94) 08/17/18 14:29 MCH 31 pg (28-32) 08/17/18 14:29 MCHC 34 % (32-34) 08/17/18 14:29 RDW 15.3 % (13.2-15.2) H 08/17/18 14:29 Plt Count 249 K/mm3 (140-440) 08/17/18 14:29 Sodium 135 mmol/L (137-145) L 08/17/18 14:29 Potassium 4.9 mmol/L (3.6-5.0) 08/17/18 14:29 Chloride 101.1 mmol/L (98-107) 08/17/18 14:29 Carbon Dioxide 23 mmol/L (22-30) 08/17/18 14:29 Anion Gap 16 mmol/L 08/17/18 14:29 BUN 19 mg/dL (9-20) 08/17/18 14:29 Creatinine 0.8 mg/dL (0.8-1.5) 08/17/18 14:29 Estimated GFR > 60 ml/min 08/17/18 14:29 BUN/Creatinine Ratio 24 % 08/17/18 14:29 Glucose 99 mg/dL (75-100) 08/17/18 14:29 POC Glucose 80 (70-105) 08/11/18 11:48 Calcium 9.4 mg/dL (8.4-10.2) 08/17/18 14:29 Vitamin B12 246.5 pg/mL (211-911) 08/04/18 19:26 [place] 0.7 mmol/L (0.0-1.2) 08/21/18 10:21 - Discharge Diagnoses (1) Paranoid schizophrenia Status: Acute (2) Seizure disorder Status: Chronic (3) Acute psychosis Status: Inactive (4) Agitation Status: Inactive (5) Combative behavior Status: Inactive Core Measure Documentation - Palliative Care Palliative Care/ Comfort Measures: Not Applicable - Core Measures Any of the following diagnoses?: none - VTE Discharge Requirements Deep Vein Thrombosis/Pulmonary Embolism Present on Admission: No Has pt received <5 days of overlap therapy or INR<2.0: No Anticoagulant overlap therapy prescribed at discharge: No Contraindication No Overlap Therapy order at DC: Not Indicated Exam - Constitutional Vitals: Temp Pulse Resp BP Pulse Ox 97.9 F 83 18 102/68 100 08/13/18 17:46 08/21/18 09:10 08/21/18 06:46 08/21/18 09:10 08/21/18 09:10 General appearance: Present: no acute distress - EENT Eyes: Present: PERRL ENT: hearing intact - Neck Neck: Present: supple - Respiratory Respiratory effort: normal - Psychiatric Psychiatric: appropriate mood/affect, cooperative Plan Activity: no restrictions Weight Bearing Status: Weight Bear as Tolerated Diet: regular [facility] [place] [Primary Care Provider] - 7 Days Prescriptions: traZODone [Desyrel] 50 mg PO QHS PRN #30 tablet PRN Reason: Insomnia Melatonin 10 mg PO QHS #[address] [Depakote Dr] 500 mg PO BID #120 tablet [place] Carbonate [Eskalith] 600 mg PO BID #120 capsule levETIRAcetam [Keppra TAB] 500 mg PO BID #60 tablet clonazePAM [KlonoPIN] 1 mg PO TID #90 tablet Multivitamin Tab [Multiple Vitamin TAB (Theragran)] 1 each PO QDAY #30 tablet oxyCODONE /ACETAMINOPHEN [Percocet 5/325 mg] 1 tab PO Q6H PRN #10 tablet PRN Reason: Pain, Moderate (4-6) Hydrocortisone 2.5% [Proctosol-Hc] 1 applic NE Q8H PRN #1 tube PRN Reason: Hemorrhoids OLANzapine [ZyPREXA] 20 mg PO BID #240 tablet
== END 2018-08-22 12:15 | disposition home or self-care (01) | DRG 885 ==
LOC: 3A 14:57 → UNDOADMIN 14:57 → 5A 18:30
PROVIDERS: ADMIT Psychiatry & Neurology Psychiatry; ATTEND Psychiatry & Neurology Psychiatry
DX: F20.0 Paranoid schizophrenia (principal); G40.909 Epilepsy, unspecified, not intractable, without status epilepticus; K62.89 Other specified diseases of anus and rectum; Z79.899 Other long term (current) drug therapy; Z88.8 Allergy status to other drugs, medicaments and biological substances; Z82.49 Family history of ischemic heart disease and other diseases of the circulatory system
CPT/HCPCS: 36415; 80048; 80178; 80307; 80320; 81001; 82607; 82962; 85025; 85027; 93005; 93010; 96372; G0378; G0480; J1200; J2060; J3230; J3486; Q0161